=== PATIENT | female | born 1950 | race Two or more races ===

== ENCOUNTER 2020-09-19 14:40 | Outpatient (CLI) | payer OTHER | END 2020-09-19 15:55 | disposition home or self-care (01) | LOC: PPH VACUNA 14:40 | PROVIDERS: ATTEND Emergency Medicine Pediatric Emergency Medicine | DX: Z23 Encounter for immunization (principal) ==

== ENCOUNTER 2022-01-01 12:50 | Outpatient (CLI) | payer OTHER | END 2022-01-01 12:52 | disposition home or self-care (01) | LOC: NUCLEAR 12:50 | PROVIDERS: ATTEND Physical Medicine & Rehabilitation | DX: M81.6 Localized osteoporosis [Lequesne] (principal) ==

== ENCOUNTER 2024-03-19 13:57 | Outpatient (CLI) | payer OTHER | END 2024-03-19 14:30 | disposition home or self-care (01) | LOC: NUCLEAR 13:57 | PROVIDERS: ATTEND General Practice | DX: M81.0 Age-related osteoporosis without current pathological fracture (principal) ==